=== PATIENT | male | born 1990 | race Caucasian/White ===

== ENCOUNTER 2023-04-03 10:29 | Emergency (ER) | payer BC, SELFPAY ==
[2023-04-03 10:29] VITALS: BP 134/95; PULSE 90; RESP 24; TEMP 36.5; O2SAT 100; BMI 22.3
--- NOTE | 2023-04-03 10:56 | ED_ITS ---
HPI - General Adult General: Chief complaint: General Medical Stated complaint: heat exhaustion Time Seen by Provider: 04/03/23 10:35 Source: patient Mode of arrival: EMS Limitations: no limitations History of Present Illness: Patient is a 32-year-old male who presents to the emergency department via EMS complaining of what he believes could be heat exhaustion. 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 He started noticing fatigue and muscle cramps then. 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 At that time, he got down from the roof and attempted to recover inside at the [facility] pharmacy but they ended up calling EMS for him. Currently he feels very chilled and is still having some symptoms of dizziness. He states that his water intake and electrolyte intake are significant due to his occupation and repetitive heat exposure. His current temp is 97.7 and heart rate is normal. He denies any chest pain, shortness of breath, palpitations, syncope, or any other symptoms at this time. Onset (ago): day(s) Associated symptoms: Reports nausea; Deny chest pain, confusion, dyspnea, headache(s), rash, palpitations, syncope or vomiting Treatments prior to arrival: none Review of Systems Const: Reports: chills and fatigue; Denies: fever(s), body aches, change in appetite or change in weight Eyes: Denies: change in vision, blurry vision, floaters or seeing flashes Card: Denies: chest pain, palpitations, irregular heart rhythm, lightheadedness, syncope or dyspnea on exertion Resp: Denies: dyspnea, productive cough or pain on inspiration GI: Reports: nausea; Denies: abdominal pain, vomiting, heartburn or diarrhea : Reports: other (no decrease output); Denies: flank pain, difficulty urinating, dysuria, urinary frequency, urinary urgency or urinary hesitancy Musc: Reports: muscle cramps and muscle weakness; Denies: neck pain, back pain, extremity pain, extremity swelling, joint pain, joint swelling, joint redness, joint warmth, joint stiffness, limited range of motion, decrease in muscle mass or loss of height Skin/Breast: Denies: rash Neuro: Reports: weakness in extremities and dizziness; Denies: headache(s), numbness in extremities, sensory changes, lack of coordination, difficulty walking, frequent falls, vertigo, confusion, behavioral changes, Slurred speech present, difficulty communicating thoughts, seizure-like activity or involuntary movements Endo: Reports: heat intolerance Physical Exam Const: COMMON NORMALS: no acute distress, average body habitus, patient oriented x3, no limitations, healthy appearing, alert and well nourished GENERAL APPEARANCE: cooperative and diaphoretic ORIENTATION/CONSCIOUSNESS: Yes awake, Yes oriented to person, Yes oriented to place and Yes oriented to time HENMT: COMMON NORMALS: normocephalic and atraumatic HEAD & SCALP: normal to inspection, normocephalic and atraumatic Eye: COMMON NORMALS: Equal, round and reactive pupils present and EOMs intact bilaterally GENERAL EYE: appearance normal, both eyes and all related structures and normal light reflex PUPIL: Yes Equal, round and reactive pupils present DIRECT OPHTHALMOSCOPY: Yes normal light reflex Neck/C-Spine: COMMON NORMALS: full ROM, no lymphadenopathy, supple and no meningeal signs Chest: COMMONS NORMALS: normal inspection of the chest Resp: COMMON NORMALS: normal respiratory effort and clear to auscultation bilaterally AUSCULTATION: clear to auscultation bilaterally Cardio: COMMON NORMALS: regular rate and regular rhythm RATE: regular rate RHYTHM: regular rhythm GI: COMMON NORMALS: Normal to inspection, nondistended, normoactive bowel sounds present, Soft to palpation, non-tender, No hepatosplenomegaly present and no masses PALPATION: Yes Soft to palpation and Yes No hepatosplenomegaly present Back/Pelvis: COMMON NORMALS: thoracic and lumbar spine normal to inspection and no thoracic nor lumbar tenderness Extremity: COMMON NORMALS: normal to inspection and full ROM GENERAL: Yes normal exam except as noted Neuro: MANUEL COMA SCALE: document GCS findings Meredith coma scale eye opening: Spontaneous Meredith coma scale verbal response: Orientated Manuel coma scale motor response: Obey commands Meredith coma scale total score: 15 COMMON NORMALS: patient oriented x3, CN's II-XII intact bilaterally, moves all extremities, no focal motor deficits, no sensory deficits noted and gait normal SENSORIUM/ORIENTATION: Yes alert, Yes oriented to person, Yes oriented to place and Yes oriented to time MENINGEAL SIGNS: Yes no meningeal signs MOTOR EXAM: 5/5 motor strength present throughout Skin: COMMON NORMALS: no rashes or lesions noted and turgor normal GENERAL SKIN EXAM: no rashes or lesions noted, turgor normal and no pallor TRAUMA: no lacerations or abrasions Course Vital Signs: Vital signs: Vital Signs Temperature 97.7 F 04/03/23 10:29 Pulse Rate 90 04/03/23 10:29 Respiratory Rate 24 H 04/03/23 10:29 Blood Pressure 134/95 04/03/23 10:29 Pulse Oximetry 100 04/03/23 10:29 Oxygen Delivery Me thod Room Air 04/03/23 10:29 MDM - General Adult Medical Decision Making Patient is a 32-year-old male who presents to ED today with complaint of muscle cramps, muscle weakness, dizziness following working out in the heat for several days. Symptoms acutely worsened today. He arrives with normal vital signs. Blood work showing a mild acute kidney injury with a BUN/Cr of 34/1.6. Gap is elevated at 28.5. Surprisingly he has a normal CPK at 243. Patient was given 2 L of fluids. He was given several items to eat and drink. Re-examination patient states he feels much better. He is requesting to go home. Discussed how over the next several days he needs to rest, stay indoors where it is cool, and continue to push fluids is much as possible. He needs to have kidney labs repeated through his primary care office in approximately a week or so. Strict return to ED precautions given. Lab Data 04/03/23 10:08 04/03/23 10:08 Laboratory Results WBC 9.67 10^3/uL (3.29-11.43) 04/03/23 10:08 RBC 5.69 10^6/uL (3.85-5.65) H 04/03/23 10:08 Hgb 17.00 g/dL (11.27-16.99) H 04/03/23 10:08 Hct 50.0 % (37-53) 04/03/23 10:08 MCV 87.9 fl (82-101) 04/03/23 10:08 MCH 29.9 pg (27-33) 04/03/23 10:08 MCHC 34.0 g/dL (30-55) 04/03/23 10:08 RDW 13.4 % (12.1-15.1) 04/03/23 10:08 Plt Count 309 10^3/cmm (157-399) 04/03/23 10:08 MPV 11.1 fL (7.4-10.4) H 04/03/23 10:08 Neut % (Auto) 65.7 % 04/03/23 10:08 Lymph % (Auto) 26.3 % 04/03/23 10:08 [place] % (Auto) 7.2 % 04/03/23 10:08 Eos % (Auto) 0.1 % 04/03/23 10:08 Baso % (Auto) 0.3 % 04/03/23 10:08 Neut # (Auto) 6.35 10^3/uL (1.8-7.7) 04/03/23 10:08 Lymph # (Auto) 2.5 10^3/uL (0.8-4.8) 04/03/23 10:08 [place] # (Auto) 0.7 10^3/uL (0.2-0.9) 04/03/23 10:08 Eos # (Auto) 0.0 10^3/uL (0.0-0.8) 04/03/23 10:08 Baso # (Auto) 0.0 10^3/uL (0.0-0.1) 04/03/23 10:08 Nucleated RBC % (auto) 0 % 04/03/23 10:08 Nucleated RBCs # 0.0 /100WBC 04/03/23 10:08 Sodium 136 mmol/L (136-145) 04/03/23 10:08 Potassium 3.5 mmol/L (3.5-5.1) 04/03/23 10:08 Chloride 92 mmol/L (98-107) L 04/03/23 10:08 Carbon Dioxide 19 mmol/L (22-29) L 04/03/23 10:08 Anion Gap 28.5 (5-19) H 04/03/23 10:08 BUN 34 mg/dL (6-20) H 04/03/23 10:08 Creatinine 1.6 mg/dL (0.7-1.2) H 04/03/23 10:08 GFR Calculation 49.7 mL/min (90-130) L 04/03/23 10:08 Glucose 93 mg/dL (65-115) 04/03/23 10:08 Calculated Osmolality 289 mOsm/kg (285-295) 04/03/23 10:08 Calcium 10.6 mg/dL (8.5-10.5) H 04/03/23 10:08 Total Bilirubin 1.6 mg/dL (0.15-1.2) H 04/03/23 10:08 AST 27 U/L (0-40) 04/03/23 10:08 ALT 16 U/L (0-41) 04/03/23 10:08 Alkaline Phosphatase 128 U/L (40-130) 04/03/23 10:08 Creatine Kinase 243 U/L (39-308) 04/03/23 10:08 CK-MB (CK-2) 1.6 ng/mL (0-10.4) 04/03/23 10:08 CK-MB (CK-2) Rel Index % (0.0-5.3) 04/03/23 10:08 Total Protein 9.1 g/dL (6.6-8.7) H 04/03/23 10:08 Albumin 5.9 g/dL (3.5-5.2) H 04/03/23 10:08 Globulin 3.2 g/dL (1.3-4.6) 04/03/23 10:08 Discharge Plan Discharge Patient Disposition: Home Clinical Impression: Dehydration, Acute kidney injury Heat exhaustion Qualifiers: Encounter type: initial encounter Qualified Code(s): T67.5XXA - Heat exhaustion, unspecified, initial encounter Condition: Stable Prescriptions: No Action No Known Home Medications Discharge Orders: Discharge ED (Routine); Ordered 04/03/23 Ordered By: Emani Jiménez Patient Instructions: Heat Exhaustion - Adult, Dehydration (DC), Acute Kidney Injury (DC), Heat Exhaustion (ED) Activity Restrictions/Additional Instructions: As we discussed over the next 2 to 3 days you need to rest as much as possible and stay inside in cooler temperatures. You need to push fluids as much as possible. You can alternate a Powerade/Gatorade after bottles of water. You need to follow-up with your primary care provider in approximately a week and have repeat labs drawn as your kidney function labs were elevated most likely due to your significant dehydration. You need to return to the emergency department for further or worsening muscle weakness or cramps, continued lightheadedness/dizziness, significant decrease in urine output, generally feeling worse or unwell, or any other concerns you may have Coding Level of Care Code ED Supervisor Webbing for Wenceslao Moreno
[2023-04-03 11:07] LABS: Basophils % 0.3 %; Eosinophils % 0.1 %; Lymphocytes # 2.5 10^3/uL (0.8-4.8); Lymphocytes % 26.3 %; Mean Corpuscular Hemoglobin 29.9 pg (27-33); Mean Corpuscular Volume 87.9 fl (82-101); Mean Platelet Volume 11.1 fL (7.4-10.4); Monocytes # 0.7 10^3/uL (0.2-0.9); Monocytes % 7.2 %; Neutrophils # 6.35 10^3/uL (1.8-7.7); Neutrophils % 65.7 %; Nucleated Red Blood Cells % 0 %; Platelet Count 309 10^3/cmm (157-399); Red Blood Count 5.69 10^6/uL (3.85-5.65); Red Cell Distribution Width 13.4 % (12.1-15.1); White Blood Count 9.67 10^3/uL (3.29-11.43)
[2023-04-03 11:19] LABS: Alanine Aminotransferase 16 U/L (0-41); Alkaline Phosphatase 128 U/L (40-130); Anion Gap 28.5 (5-19); Aspartate Amino Transferase 27 U/L (0-40); Blood Urea Nitrogen 34 mg/dL (6-20); Calcium 10.6 mg/dL (8.5-10.5); Carbon Dioxide 19 mmol/L (22-29); Chloride 92 mmol/L (98-107); Creatine Phosphokinase 243 U/L (39-308); Glomerular Filtration Rate 49.7 mL/min (90-130); Glucose 93 mg/dL (65-115); Osmolality Calculated 289 mOsm/kg (285-295); Potassium 3.5 mmol/L (3.5-5.1); Sodium 136 mmol/L (136-145); Total Bilirubin 1.6 mg/dL (0.15-1.2)
[2023-04-03] MEDS: ondansetron 2 mg/ML SDV 2 mL 4 MG IVP (11:24)
[2023-04-03] MEDS: acetaminophen 500 mg Tablet 1000 MG PO (11:24)
[2023-04-03 11:41] LABS: CKMB 1.6 ng/mL (0-10.4)
[2023-04-03 11:42] LABS: Albumin Level 5.9 g/dL (3.5-5.2); Globulin 3.2 g/dL (1.3-4.6); Total Protein 9.1 g/dL (6.6-8.7)
--- NOTE | 2023-04-10 14:53 | DCPLANNER ---
correctional manager called patient due to no primary care physician - no answer at this time.
--- NOTE | 2023-04-16 11:35 | DCPLANNER ---
supply chain systems manager called patient due to no primary care physician - unable to speak with patient at this time, a voicemail was left for patient to return therapeutic case manager phone call.
== END 2023-04-03 13:27 | disposition home or self-care (01) ==
PROVIDERS: Emergency Provider Physician Assistant
DX: T67.5XXA Heat exhaustion, unspecified, initial encounter (principal); X30.XXXA Exposure to excessive natural heat, initial encounter; E86.0 Dehydration; N17.9 Acute kidney failure, unspecified
CPT/HCPCS: 80053; 82550; 82553; 85025; 96374; 99284; J2405